=== PATIENT | male | born 1950 | race Asian ===

== ENCOUNTER 2017-04-05 09:28 | Outpatient (CLI) | payer OTHER ==
[~2017-04-05 09:28] MED LIST: ASPI-93 PO; CARB25TA29 PO; CARV6.25 PO; LIPITOR20 MG PO; LOTENSIN HCT1 TA2 PO; MOBIC7.5 M1 PO; PLETAL100 MG PO; RANO500T PO
[2017-04-05 09:51] LABS: PLATELET COUNT 186 K/uL (142-355)
[2017-04-05 10:06] LABS: POTASSIUM 3.2 mmol/L (3.6-5.2); SODIUM 141 mmol/L (136-145)
== END 2017-04-05 19:15 | disposition home or self-care (01) ==
LOC: LABW 09:28
PROVIDERS: Internal Medicine Cardiovascular Disease
DX: I25.10 Atherosclerotic heart disease of native coronary artery without angina pectoris (principal); E78.4 Other hyperlipidemia; I10 Essential (primary) hypertension; Z79.899 Other long term (current) drug therapy; Z51.81 Encounter for therapeutic drug level monitoring
CPT/HCPCS: 36415; 80053; 80061; 85027

== ENCOUNTER 2017-04-16 11:15 | Observation (INO) | payer OTHER ==
[~2017-04-16] VITALS: Ht 160 cm; Wt 67.1 kg
[2017-04-16 12:18] LABS: PLATELET COUNT 195 K/uL (142-355)
[2017-04-16 12:57] VITALS: BP 204/106; TEMP 97.8; Ht 160 cm; Wt 67.1 kg
[2017-04-16 13:11] LABS: POTASSIUM 3.5 mmol/L (3.6-5.2); SODIUM 138 mmol/L (136-145)
--- NOTE | 2017-04-16 14:01 | NUR ---
BP RECHECKED . REPORTED TO CASH AND DR BORGES.
[2017-04-16 16:00] VITALS: BP 151/93; TEMP 97.9
[2017-04-16] MEDS ORDERED: PLETAL PO (17:24)
[2017-04-16 20:00] VITALS: BP 171/96; TEMP 98.1
[2017-04-17] VITALS: BP 125/83; TEMP 97.5
[2017-04-17 04:00] VITALS: BP 110/73; TEMP 97.7
[2017-04-17 04:38] LABS: POTASSIUM 4.1 mmol/L (3.6-5.2); SODIUM 140 mmol/L (136-145)
[2017-04-17 05:03] LABS: PLATELET COUNT 172 K/uL (142-355)
[2017-04-17 07:50] VITALS: BP 105/70; TEMP 97.5
[2017-04-17 12:00] VITALS: BP 112/71; TEMP 97.5
[2017-04-17 16:00] VITALS: BP 127/76; TEMP 97.5
[2017-04-17 20:00] VITALS: BP 119/76; TEMP 98.1
[2017-04-18] VITALS: BP 124/75; TEMP 97.7
[2017-04-18 04:00] VITALS: BP 146/90; TEMP 97.8
[2017-04-18 06:41] LABS: PLATELET COUNT 192 K/uL (142-355)
[2017-04-18 06:57] LABS: POTASSIUM 4.4 mmol/L (3.6-5.2)
[2017-04-18 08:00] VITALS: BP 125/78; TEMP 97.8
[2017-04-18 12:00] VITALS: BP 126/76; TEMP 98.1
--- NOTE | 2017-04-18 12:07 | NUR ---
IV SITE D/C'D WITH TIP INTACT AND SITE CARE DONE.
--- NOTE | 2017-04-18 14:37 | NUR ---
D/C INSTRUCTIONS GIVEN TO PT AND FAMILY AND BOTH VERBALIZE UNDERSTANDING. PT OUT VIA W/C PER ANGELIQUE OJEDA WITH NAD.
== END 2017-04-18 14:30 | disposition home or self-care (01) ==
LOC: MED/SURG 11:15
PROVIDERS: Emergency Medicine; ADMIT Internal Medicine
DX: R53.1 Weakness (principal); I10 Essential (primary) hypertension; G20 Parkinson's disease; J32.8 Other chronic sinusitis; R51 Headache
CPT/HCPCS: 36415; 80053; 82550; 83735; 84484; 85027; 93005; 96374; 96376; 99220; G0378; G0379; J1885

== ENCOUNTER 2017-05-01 11:23 | Observation (INO) | payer OTHER ==
[2017-05-01] VITALS (7 sets, daily range): BP systolic 142–165; BP diastolic 83–99; TEMP 97.8–98.1; Ht 160 cm; Wt 64.1 kg
[~2017-05-01] VITALS: Ht 160 cm; Wt 64.1 kg
[~2017-05-01 11:23] MED LIST changes: +PLETAL PO
[2017-05-01 14:35] LABS: PLATELET COUNT 219 K/uL (142-355)
[2017-05-01 15:13] LABS: POTASSIUM 4.5 mmol/L (3.6-5.2)
[2017-05-01] MEDS ORDERED: FLUTICASONE50 MCG (20:46)
[2017-05-02] VITALS: BP 110/68; TEMP 97.8
[2017-05-02 04:00] VITALS: BP 154/84; TEMP 97.8
[2017-05-02 07:02] LABS: PLATELET COUNT 199 K/uL (142-355)
[2017-05-02 07:04] LABS: POTASSIUM 3.9 mmol/L (3.6-5.2)
[2017-05-02 08:00] VITALS: BP 141/85; TEMP 98.6
--- NOTE | 2017-05-02 15:19 | NUR ---
PT'S IV AND TELE D/C'D. CANNULA INTACT. D/C INSTURCTIONS GIVEN. PT VERBALIZES UNDERSTANDING. F/U W DR. MENDOZA SCHEDULED. PT D/C'D VIA W/C AT 1430. NAD NOTED.
== END 2017-05-02 14:30 | disposition home or self-care (01) ==
LOC: ED 11:23 → MED/SURG 16:30
PROVIDERS: Emergency Medicine; ADMIT Specialist
DX: R53.1 Weakness (principal); A08.8 Other specified intestinal infections; I10 Essential (primary) hypertension; E88.09 Other disorders of plasma-protein metabolism, not elsewhere classified; R39.2 Extrarenal uremia
CPT/HCPCS: 36415; 80053; 81000; 82550; 83735; 84100; 84484; 85027; 93005; 96360; 96365; 96366; 96372; 96375; 99220; 99284; G0378; J1650; J1720

== ENCOUNTER 2017-05-23 10:00 | Outpatient (CLI) | payer OTHER ==
[~2017-05-23 10:00] MED LIST changes: +FLUTICASONE50 MCG
== END 2017-05-23 19:14 | disposition home or self-care (01) ==
LOC: MRI 10:00
DX: R26.81 Unsteadiness on feet (principal)

== ENCOUNTER 2017-09-06 21:21 | Emergency (ER) | payer OTHER ==
[~2017-09-06] VITALS: Ht 165.1 cm; Wt 71.2 kg
[2017-09-06 23:15] VITALS: BP 168/100; TEMP 98.3
== END 2017-09-06 23:17 | disposition home or self-care (01) ==
LOC: ED 21:21
DX: S10.83XA Contusion of other specified part of neck, initial encounter (principal); W01.198A Fall on same level from slipping, tripping and stumbling with subsequent striking against other object, initial encounter; Y92.098 Other place in other non-institutional residence as the place of occurrence of the external cause
CPT/HCPCS: 99283

== ENCOUNTER 2017-09-10 12:30 | Outpatient (CLI) | payer OTHER ==
[2017-09-10 13:21] LABS: PLATELET COUNT 182 K/uL (142-355)
[2017-09-10 13:22] LABS: POTASSIUM 4.7 mmol/L (3.6-5.2)
== END 2017-09-10 13:30 | disposition home or self-care (01) ==
LOC: LAB 12:30
PROVIDERS: Internal Medicine
DX: I10 Essential (primary) hypertension (principal); R82.99 Other abnormal findings in urine
CPT/HCPCS: 80053; 80061; 81000; 84443; 85027; 87077; 87086; 87088; 87186

== ENCOUNTER 2018-06-13 14:16 | Observation (INO) | payer OTHER ==
[~2018-06-13] VITALS: Ht 160 cm; Wt 63.6 kg
[2018-06-13 14:16] VITALS: BP 139/72; TEMP 98.1
[2018-06-13 14:54] LABS: PLATELET COUNT 161 K/uL (142-355)
[2018-06-13 14:58] LABS: POTASSIUM 3.9 mmol/L (3.6-5.2); SODIUM 142 mmol/L (136-145)
[2018-06-13 15:16] VITALS: BP 117/75
[2018-06-13 16:30] VITALS: BP 131/75; TEMP 98
[2018-06-13 17:40] VITALS: BP 151/76; TEMP 97.7; BMI 24.2
[2018-06-13 18:07] VITALS: BP 151/76; TEMP 97.7; Ht 160 cm; Wt 63.6 kg
[2018-06-13 19:29] LABS: PARTIAL THROMBOPLASTIN TIME 30.1 SECONDS (24.5-33.6)
[2018-06-13 20:00] VITALS: BP 105/69; TEMP 97.5
[2018-06-14] VITALS: BP 104/60; TEMP 97.9
[2018-06-14] MEDS ORDERED: CARV25TA PO (03:18)
[2018-06-14] MEDS ORDERED: LOTENSIN HCT1 TA1 PO (03:20)
[2018-06-14] MEDS ORDERED: LOFIBRA67 MG PO (03:22)
[2018-06-14] MEDS ORDERED: CLON0.1T16 PO (03:24)
[2018-06-14] MEDS ORDERED: RANO500T PO (03:25)
[2018-06-14] MEDS ORDERED: AMLO2.5T PO (03:30)
[2018-06-14] MEDS ORDERED: PRAMIPEXOLE0.25 MG PO (03:33)
[2018-06-14 04:00] VITALS: BP 132/72; TEMP 97.9
[2018-06-14 05:50] LABS: PLATELET COUNT 144 K/uL (142-355)
[2018-06-14 06:09] LABS: POTASSIUM 3.6 mmol/L (3.6-5.2)
[2018-06-14 08:00] VITALS: BP 155/79; TEMP 97.7
[2018-06-14 12:00] VITALS: BP 115/82; TEMP 98.1
[2018-06-14 16:00] VITALS: BP 154/80; TEMP 97.8
== END 2018-06-14 20:10 | disposition home or self-care (01) ==
LOC: ED 14:18 → MED/SURG 16:50
PROVIDERS: Family Medicine; ADMIT Family Medicine
DX: R07.89 Other chest pain (principal); R00.2 Palpitations
CPT/HCPCS: 36415; 80053; 81000; 82550; 84484; 85027; 85610; 85730; 93005; 94760; 99220; 99283; G0378

== ENCOUNTER 2018-10-01 08:03 | Day surgery (SDC) | payer OTHER ==
[~2018-10-01 08:03] MED LIST changes: +AMLO2.5T PO; +CARV25TA PO; +CLON0.1T16 PO; +LOFIBRA67 MG PO; +LOTENSIN HCT1 TA1 PO; +PRAMIPEXOLE0.25 MG PO
[2018-10-01 08:37] LABS: PLATELET COUNT 192 K/uL (142-355)
[2018-10-01 08:43] LABS: POTASSIUM 3.8 mmol/L (3.6-5.2)
== END 2018-10-01 11:02 | disposition home or self-care (01) ==
LOC: OR 08:03
PROVIDERS: Student in an Organized Health Care Education/Training Program
PROC: 0DJD8ZZ Inspection of Lower Intestinal Tract, Via Natural or Artificial Opening Endoscopic (ICD-10-PCS; principal; 2018-10-01)
DX: Z12.11 Encounter for screening for malignant neoplasm of colon (principal); K64.8 Other hemorrhoids
CPT/HCPCS: 80053; 85027; J2001; J2250; J2704; J3490

== ENCOUNTER 2019-03-05 13:23 | Outpatient (CLI) | payer OTHER | END 2019-03-05 23:19 | disposition home or self-care (01) | LOC: RAD 13:23 | DX: M79.671 Pain in right foot (principal) ==

== ENCOUNTER 2019-11-09 10:07 | Emergency (ER) | payer OTHER ==
[~2019-11-09] VITALS: Ht 160 cm; Wt 65.8 kg
[2019-11-09 10:16] VITALS: TEMP 97.9
[2019-11-09 10:51] LABS: PLATELET COUNT 172 K/uL (142-355)
[2019-11-09 10:57] LABS: POTASSIUM 3.6 mmol/L (3.6-5.2)
[2019-11-09 11:17] VITALS: BP 115/66
== END 2019-11-09 11:19 | disposition home or self-care (01) ==
LOC: ED 10:07
PROVIDERS: Hospitalist
DX: I16.0 Hypertensive urgency (principal); R00.1 Bradycardia, unspecified
CPT/HCPCS: 80048; 85027; 93005; 99283

== ENCOUNTER 2020-11-23 15:36 | Outpatient (CLI) | payer OTHER | END 2020-11-23 23:26 | disposition home or self-care (01) | LOC: RAD 15:36 | PROVIDERS: ATTEND Family Medicine | DX: S16.1XXA Strain of muscle, fascia and tendon at neck level, initial encounter (principal); M25.511 Pain in right shoulder ==

== ENCOUNTER 2020-12-24 13:49 | Outpatient (CLI) | payer OTHER | END 2020-12-24 19:39 | disposition home or self-care (01) | LOC: MRI 13:49 | PROVIDERS: ATTEND Family Medicine | DX: M47.812 Spondylosis without myelopathy or radiculopathy, cervical region (principal) ==

== ENCOUNTER 2022-08-11 11:26 | Outpatient (CLI) | payer OTHER | END 2022-08-11 19:04 | disposition home or self-care (01) | LOC: RAD 11:26 | PROVIDERS: ATTEND Nurse Practitioner Family | DX: M54.59 Other low back pain (principal) ==